=== PATIENT | female | born 1965 | race Hispanic/Latino ===

== ENCOUNTER 2022-02-13 11:13 | Emergency (ER) | payer OTHER, SELFPAY ==
[~2022-02-13] VITALS: Ht 162.6 cm; Wt 56.8 kg
[2022-02-13] MEDS ORDERED: ASPI81CH33 (11:27)
[2022-02-13] MEDS ORDERED: ATEN100T7 (11:27)
[2022-02-13] MEDS ORDERED: OMEP40CA5 (11:27)
[2022-02-13] MEDS ORDERED: SYMT1TAB (11:27)
[2022-02-13] MEDS ORDERED: DICL1GEL3 (11:27)
[2022-02-13 14:33] VITALS: BP 135/85
== END 2022-02-13 14:35 | disposition home or self-care (01) ==
LOC: M ED 11:13
DX: M70.941 Unspecified soft tissue disorder related to use, overuse and pressure, right hand (principal); M67.843 Other specified disorders of tendon, right hand; B20 Human immunodeficiency virus [HIV] disease; I10 Essential (primary) hypertension

== ENCOUNTER → 2022-03-19 | Outpatient (REF) | payer OTHER ==
[~2022-03-19] MED LIST: ASPI81CH33; ATEN100T7; DICL1GEL3; OMEP40CA5; SYMT1TAB
== END ==
LOC: M SFHCWAGY 17:31
PROVIDERS: ATTEND Obstetrics & Gynecology
DX: Z08 Encounter for follow-up examination after completed treatment for malignant neoplasm (principal)

== ENCOUNTER 2022-03-24 17:14 | Emergency (ER) | payer OTHER ==
[2022-03-24] MEDS ORDERED: LIDOCAINE 1% MDV 20ML VIAL SC ONE (17:30)
[2022-03-24] MEDS ORDERED: LIDOCAINE 1% MDV 20ML VIAL As Ordered ONE (17:32)
[2022-03-24] MEDS ORDERED: BOOSTRIX/ADACEL VACCINE (DIPHTH/PERTUSS/ACELL/TETANUS) 0.5ML SYR IM ONE (17:35)
[2022-03-24 18:51] VITALS: BP 136/82
[2022-03-24] MEDS ORDERED: PERC5TAB12 PO (19:36)
== END 2022-03-24 19:42 | disposition home or self-care (01) ==
LOC: M ED 17:14 → EDBD 17:14 → M ED 19:42
DX: S61.207A Unspecified open wound of left little finger without damage to nail, initial encounter (principal); W31.82XA Contact with other commercial machinery, initial encounter; Y92.512 Supermarket, store or market as the place of occurrence of the external cause; Y99.0 Civilian activity done for income or pay; Z21 Asymptomatic human immunodeficiency virus [HIV] infection status; Z79.899 Other long term (current) drug therapy; Z79.82 Long term (current) use of aspirin

== ENCOUNTER 2022-03-25 12:08 | Emergency (ER) | payer OTHER ==
[~2022-03-25] VITALS: Ht 165.1 cm; Wt 56.5 kg
[2022-03-25 12:08] VITALS: BP 132/79
[~2022-03-25 12:08] MED LIST changes: +PERC5TAB12 PO
== END 2022-03-25 17:07 | disposition home or self-care (01) ==
LOC: M ED 12:08
DX: Z48.00 Encounter for change or removal of nonsurgical wound dressing (principal); S61.207D Unspecified open wound of left little finger without damage to nail, subsequent encounter; W31.82XD Contact with other commercial machinery, subsequent encounter; Y92.512 Supermarket, store or market as the place of occurrence of the external cause; Y99.0 Civilian activity done for income or pay; I10 Essential (primary) hypertension; B20 Human immunodeficiency virus [HIV] disease; K21.9 Gastro-esophageal reflux disease without esophagitis; Z79.899 Other long term (current) drug therapy

== ENCOUNTER 2022-03-27 11:57 | Emergency (ER) | payer OTHER ==
[~2022-03-27] VITALS: Ht 165.1 cm; Wt 56.6 kg
[2022-03-27 11:58] VITALS: BP 133/85
[2022-03-27] MEDS ORDERED: BACT800T5 PO (14:02)
== END 2022-03-27 14:17 | disposition home or self-care (01) ==
LOC: M ED 11:57
DX: Z48.00 Encounter for change or removal of nonsurgical wound dressing (principal); L08.89 Other specified local infections of the skin and subcutaneous tissue; S61.217D Laceration without foreign body of left little finger without damage to nail, subsequent encounter; X58.XXXD Exposure to other specified factors, subsequent encounter; Y92.89 Other specified places as the place of occurrence of the external cause; Z78.0 Asymptomatic menopausal state; Z79.899 Other long term (current) drug therapy; Z79.82 Long term (current) use of aspirin

== ENCOUNTER 2022-04-02 08:01 | Emergency (ER) | payer OTHER ==
[~2022-04-02] VITALS: Ht 165.1 cm; Wt 56.8 kg
[~2022-04-02 08:01] MED LIST changes: +BACT800T5 PO
[2022-04-02 09:32] VITALS: BP 135/85
== END 2022-04-02 09:34 | disposition home or self-care (01) ==
LOC: M ED 08:01
DX: Z48.00 Encounter for change or removal of nonsurgical wound dressing (principal); S61.207D Unspecified open wound of left little finger without damage to nail, subsequent encounter; W26.8XXD Contact with other sharp object(s), not elsewhere classified, subsequent encounter; Y92.89 Other specified places as the place of occurrence of the external cause; Y93.9 Activity, unspecified; Y99.0 Civilian activity done for income or pay; K21.9 Gastro-esophageal reflux disease without esophagitis; Z79.82 Long term (current) use of aspirin; Z79.899 Other long term (current) drug therapy

== ENCOUNTER → 2022-07-22 | Outpatient (CLI) | payer OTHER | LOC: M WHC 11:14 | PROVIDERS: ATTEND Obstetrics & Gynecology | DX: Z53.9 Procedure and treatment not carried out, unspecified reason (principal) ==